=== PATIENT | female | born 1930 | race Hispanic/Latino ===

== ENCOUNTER 2018-12-24 00:34 | Emergency (ER) | payer OTHER ==
[2018-12-24] MEDS ORDERED: TETANUS/DIPHTHERIA TOXOID [ADULT] 0.5 ML VIAL IM ONE (01:11)
[2018-12-24] MEDS ORDERED: OCTYL 2-CYANOACRYLATE 1 EACH TP ONE ×2 (01:11→03:53)
[2018-12-24] MEDS ORDERED: ACETAMINOPHEN 325 MG TAB ONE (01:12)
[2018-12-24 03:09] LABS: BASOPHILS % (AUTO) 0.7 % (0.0-5.0); EOSINOPHILS % (AUTO) 0.9 % (0.0-8.0); HEMATOCRIT 31.4 % (36-48); LYMPHOCYTES % (AUTO) 7.8 % (21.0-51.0); MEAN CORPUSCULAR HEMOGLOBIN 27.6 pg (27.0-33.0); MEAN CORPUSCULAR HGB CONC 32.4 g/dL (32.0-36.0); MEAN CORPUSCULAR VOLUME 85.2 fL (79-99); MONOCYTES % (AUTO) 10.7 % (3.0-13.0); NEUTROPHILS % (AUTO) 79.9 % (40.0-77.0); PLATELET COUNT (AUTO) 425 K/uL (130-400); RED BLOOD CELL COUNT(AUTO) 3.69 MIL/uL (4.00-5.50); RED CELL DISTRIBUTION WIDTH 17.9 % (11.0-15.5); WHITE BLOOD COUNT (AUTO) 11.6 K/uL (4.8-10.8)
[2018-12-24 03:15] LABS: CREATININE 0.8 mg/dL (0.5-1.5); POTASSIUM 3.2 mmol/L (3.5-5.1)
[2018-12-24 03:18] LABS: ALBUMIN 2.9 g/dL (3.5-5.0); BILIRUBIN,TOTAL 0.4 mg/dL (0.2-1.0); TOTAL PROTEIN, SERUM 7.3 g/dL (6.0-8.3)
[2018-12-24 03:44] LABS: APPEARANCE,URINE Cloudy (CLEAR); BILIRUBIN,URINE Negative (NEGATIVE); COLOR,URINE Yellow (YELLOW); GLUCOSE, URINE (UA) Negative (NEGATIVE); KETONES,URINE Negative (NEGATIVE); LEUKOCYTE ESTERASE ,URINE Large (NEGATIVE); NITRATE,URINE Positive (NEGATIVE); OCCULT BLOOD,URINE Trace (NEGATIVE); PROTEIN,URINE Trace mg/dL (NEGATIVE)
[2018-12-24 03:56] LABS: BACTERIA,URINE Many /HPF (None Seen); SQUAMOUS EPITHELIAL CELL,UR 0-2 /HPF (0-2); WBC,URINE 26-50 /HPF (0-1)
[2018-12-24] MEDS ORDERED: CEFTRIAXONE SODIUM 1 GM ONE (03:59)
[2018-12-24] MEDS ORDERED: POTASSIUM BICARB/CIT AC 25 MEQ TABLET.EFF ONE (03:59)
== END 2018-12-24 04:34 | disposition home or self-care (01) ==
LOC: EDH 00:34
DX: S01.01XA Laceration without foreign body of scalp, initial encounter (principal); S61.412A Laceration without foreign body of left hand, initial encounter; S51.812A Laceration without foreign body of left forearm, initial encounter; S51.012A Laceration without foreign body of left elbow, initial encounter; N39.0 Urinary tract infection, site not specified; I10 Essential (primary) hypertension; E07.9 Disorder of thyroid, unspecified; W01.0XXA Fall on same level from slipping, tripping and stumbling without subsequent striking against object, initial encounter; Y93.89 Activity, other specified; Y92.89 Other specified places as the place of occurrence of the external cause; Y99.8 Other external cause status
CPT/HCPCS: 12001; 12032; 12041; 36415; 70450; 71045; 72125; 72170; 80053; 81001; 85025; 87077; 87088; 87186; 90471; 90714; 96374; 99285; J0696

== ENCOUNTER 2019-01-03 17:15 | Inpatient (IN) | payer OTHER ==
[~2019-01-03] VITALS: Ht 157.5 cm; Wt 52.2 kg
[2019-01-03 17:48] LABS: BASOPHILS % (AUTO) 0.7 % (0.0-5.0); EOSINOPHILS % (AUTO) 0.1 % (0.0-8.0); HEMATOCRIT 30.9 % (36-48); LYMPHOCYTES % (AUTO) 3.7 % (21.0-51.0); MEAN CORPUSCULAR HEMOGLOBIN 27.6 pg (27.0-33.0); MEAN CORPUSCULAR HGB CONC 32.8 g/dL (32.0-36.0); MEAN CORPUSCULAR VOLUME 84.2 fL (79-99); MONOCYTES % (AUTO) 11.2 % (3.0-13.0); NEUTROPHILS % (AUTO) 84.3 % (40.0-77.0); PLATELET COUNT (AUTO) 451 K/uL (130-400); RED BLOOD CELL COUNT(AUTO) 3.67 MIL/uL (4.00-5.50); RED CELL DISTRIBUTION WIDTH 16.7 % (11.0-15.5); WHITE BLOOD COUNT (AUTO) 16.4 K/uL (4.8-10.8)
[2019-01-03 17:57] LABS: CREATININE 0.8 mg/dL (0.5-1.5); POTASSIUM 3.5 mmol/L (3.5-5.1)
[2019-01-03 18:01] LABS: ALBUMIN 3.1 g/dL (3.5-5.0); BILIRUBIN,TOTAL 0.4 mg/dL (0.2-1.0); TOTAL PROTEIN, SERUM 7.7 g/dL (6.0-8.3)
[2019-01-03 18:17] LABS: B-TYPE NATRIURETIC PEPTIDE 215 pg/mL (0-100)
[2019-01-03] MEDS ORDERED: AZITHROMYCIN 250 MG TABLET PO ONE (18:59)
[2019-01-03] MEDS ORDERED: METHYLPREDNISOLONE SOD SUCC 40MG/ML 1ML ONE (18:59)
[2019-01-03] MEDS ORDERED: CEFTRIAXONE SODIUM 1 GM ONE (18:59)
[2019-01-03] MEDS ORDERED: IPRATROPIUM/ALBUTEROL SULFATE 3 ML SOLUTION IH ONE ×2 (19:00→19:47)
[2019-01-03] MEDS ORDERED: SODIUM CHLORIDE 0.9% 100 ML IV ONE (19:00)
[2019-01-03] MEDS ORDERED: ZOSYN 3.375GM+NS 50ML 50 ML IV ONE (20:37)
[2019-01-03] MEDS: VANCOMYCIN 0.75 GM in SODIUM CHLORIDE 0.9% 250 ML IV SCH (21:00)
[2019-01-03] MEDS ORDERED: VANCOMYCIN PROTOCOL PER PHARMACY IV SCH (21:00)
[2019-01-03] MEDS ORDERED: COMPOUND IV REFRIGERATED 1 EACH IVSOLN MISC PRN (21:00)
[2019-01-03] MEDS ORDERED: MORPHINE SULFATE 2 MG/ML 1ML SYG IV PRN (21:15)
[2019-01-03] MEDS ORDERED: ONDANSETRON HCL 4 MG/2 ML VIAL IV PRN (21:15)
[2019-01-03] MEDS ORDERED: MAGNESIUM 2GM PREMIX 50ML 50 ML IV PRN (21:15)
[2019-01-03] MEDS ORDERED: MAG HYDROX/AL HYDROX/SIMETH ES 30 ML SUSP UDCUP PO PRN (21:15)
[2019-01-03] MEDS ORDERED: ONDANSETRON HCL 4 MG/2 ML VIAL IVP PRN (21:15)
[2019-01-03] MEDS ORDERED: MORPHINE SULFATE 2 MG/ML 1ML SYG IVP PRN (21:15)
[2019-01-03] MEDS ORDERED: ACETAMINOPHEN 325 MG TAB PO PRN ×2 (21:15)
[2019-01-03] MEDS ORDERED: HYDRALAZINE HCL 20 MG/ML VIAL IV PRN (21:15)
[2019-01-03] MEDS ORDERED: LACTULOSE 20 GM/30 ML UDCUP PO PRN (21:15)
[2019-01-03] MEDS ORDERED: GUAIFENESIN-DM 200/20 MG 10 ML PO PRN (21:15)
[2019-01-03] MEDS ORDERED: POTASSIUM CHLORIDE 20MEQ/100ML 100 ML IV PRN (21:15)
[2019-01-03] MEDS ORDERED: ZOLPIDEM TARTRATE 5 MG TAB PO PRN (21:15)
[2019-01-03] MEDS ORDERED: DIPHENHYDRAMINE HCL 25 MG CAPSULE PO PRN (21:15)
[2019-01-03] MEDS ORDERED: ACETAMINOPHEN 325 MG TAB ONE (21:53)
[2019-01-03] MEDS: IPRATROPIUM/ALBUTEROL SULFATE 3 ML SOLUTION IH SCH (22:38)
[2019-01-04] MEDS ORDERED: IPRATROPIUM/ALBUTEROL SULFATE 3 ML SOLUTION IH SCH
[2019-01-04] MEDS ORDERED: SODIUM CHLORIDE 3% FOR INHALATION 4 ML/AMP VIAL.NEB IH ONE ×4 (01:31→21:25)
[2019-01-04] MEDS: IPRATROPIUM/ALBUTEROL SULFATE 3 ML SOLUTION IH SCH ×6 (01:46→21:34)
[2019-01-04] MEDS: ZOSYN 3.375GM+NS 50ML 50 ML IV SCH ×3 (02:00→20:13)
[2019-01-04] MEDS ORDERED: ZOSYN 3.375GM+NS 50ML 50 ML IV ONE (04:19)
[2019-01-04 04:51] LABS: BASOPHILS % (AUTO) 0.2 % (0.0-5.0); HEMATOCRIT 30.9 % (36-48); LYMPHOCYTES % (AUTO) 1.5 % (21.0-51.0); MEAN CORPUSCULAR HEMOGLOBIN 27.1 pg (27.0-33.0); MEAN CORPUSCULAR HGB CONC 31.9 g/dL (32.0-36.0); MEAN CORPUSCULAR VOLUME 84.9 fL (79-99); MONOCYTES % (AUTO) 4.4 % (3.0-13.0); NEUTROPHILS % (AUTO) 93.9 % (40.0-77.0); PLATELET COUNT (AUTO) 419 K/uL (130-400); RED BLOOD CELL COUNT(AUTO) 3.63 MIL/uL (4.00-5.50); RED CELL DISTRIBUTION WIDTH 16.8 % (11.0-15.5); WHITE BLOOD COUNT (AUTO) 19.7 K/uL (4.8-10.8)
[2019-01-04 05:03] LABS: CARBON DIOXIDE 31 mmol/L (21-32); CHLORIDE 101 mmol/L (101-111); GLOMERULAR FILTR. RATE CALC 56 mL/min (>60); GLUCOSE,RANDOM 188 mg/dL (70-105); POTASSIUM 3.1 mmol/L (3.5-5.1); SODIUM SERUM 138 mmol/L (136-145); UREA NITROGEN, BLOOD 13 mg/dL (7-18)
[2019-01-04 05:04] LABS: INR 1.04 (0.85-1.15); PARTIAL THROMBOPLASTIN TIME 28.8 SEC (26.3-35.5); PROTHROMBIN TIME 10.9 SEC (9.6-11.6)
[2019-01-04 05:22] LABS: AMMONIA < 10 umol/L (11-32)
[2019-01-04] MEDS ORDERED: POTASSIUM CHLORIDE 20MEQ/100ML 100 ML IV ONE (06:11)
[2019-01-04] MEDS ORDERED: MAGNESIUM 2GM PREMIX 50ML 50 ML IV ONE (06:11)
[2019-01-04 07:22] LABS: ABG BASE EXCESS 2.6 mmol/L (-2.0-3.0); ABG OXYGEN SATURATION 97.9 % (95.0-99.0); ABG PCO2 52 mmHg (32-45)
[2019-01-04] MEDS: INSULIN HUMULIN R 100 UNIT/ML 3ML SQ SCH ×4 (07:30→21:00)
[2019-01-04] MEDS: ENOXAPARIN SODIUM 30 MG/0.3 ML SQ SCH (09:00)
[2019-01-04] MEDS ORDERED: IPRATROPIUM/ALBUTEROL SULFATE 3 ML SOLUTION IH ONE (09:16)
[2019-01-04] MEDS ORDERED: ENOXAPARIN SODIUM 30 MG/0.3 ML SQ ONE (10:28)
--- NOTE | 2019-01-04 11:35 | NUR ---
DCP: HOME met with pt and her daughter Emily Grossman [phone]. Pt's 2 daughter Charisse and Mayra Meyer, and 2 grand daughters and 1 grandson live with the patient. Daughters assist pt as needed with ADLS and pt has walker, w/c and shower chair. Pt's daughter Deirdre does transport to [place] appts. No services. Family denies dc needs. Pt to return home with family support Addendum: 01/04/19 at 1210 by TOÑO BURK Amended: Links added.
[2019-01-04 12:00] VITALS: BP 133/68
--- NOTE | 2019-01-04 12:00 | NUR ---
DYSPHAGIA EVAL COMPLETED. -S/S OF ASPIRATION. RECOMMEND MECHANICAL SOFT/CHOPPED, THIN LIQUIDS; PILLS WHOLE WITH LIQUIDS. Addendum: 01/05/19 at 0832 by TRUPTI NAGEL, [facility] Amended: Links added.
[2019-01-04] MEDS ORDERED: IPRATROPIUM/ALBUTEROL SULFATE 3 ML SOLUTION IH PRN (13:00)
[2019-01-04 16:00] VITALS: BP 132/58
[2019-01-04] MEDS ORDERED: AMLO5TAB9 PO (16:13)
[2019-01-04] MEDS ORDERED: ASPI-555 PO (16:14)
[2019-01-04] MEDS ORDERED: LEVO25TA54 PO (16:17)
[2019-01-04] MEDS ORDERED: SERT25TA5 PO (16:17)
[2019-01-04] MEDS ORDERED: METO50 PO (16:19)
[2019-01-04] MEDS ORDERED: LISI-613 PO (16:20)
[2019-01-04] MEDS ORDERED: [UNRECOGNIZED DRUG - CODE] PO (16:25)
[2019-01-04] MEDS ORDERED: IRON PO (16:29)
[2019-01-04] MEDS ORDERED: VIT D PO (16:30)
[2019-01-04] MEDS ORDERED: AMPI500C12 PO (16:33)
[2019-01-04] MEDS: VANCOMYCIN 500MG+NS 100ML 100 ML IV SCH (18:41)
[2019-01-04 19:00] VITALS: BP 148/59
--- NOTE | 2019-01-04 20:07 | NUR ---
PAGED DEVELOPMENTAL WRITING INSTRUCTOR Paged Jira Administrator front line supervisor,pt.s heart rate st 130's.
--- NOTE | 2019-01-04 20:13 | NUR ---
MEDS Due meds given.
[2019-01-04] MEDS ORDERED: AMPICILLIN TRIHYDRATE 500 MG PO SCH (21:00)
[2019-01-04] MEDS: VANCOMYCIN 0.75 GM in SODIUM CHLORIDE 0.9% 250 ML IV SCH (21:00)
[2019-01-04] MEDS: MORPHINE SULFATE 15 MG TABLET.SA PO SCH (21:26)
--- NOTE | 2019-01-04 22:55 | NUR ---
RADIOLOGY Ct scan dept called,pt has a pending ct scan of abdomen,chest pelvis with contrast.Pt already asleep,pts daughter informed of the test and need to keep Npo.Verbalized understanding.
[2019-01-04 23:00] VITALS: BP 145/75
--- NOTE | 2019-01-05 00:30 | NUR ---
TACHYCARDIC Pt cont to be tachycardic,placed on bipap per RT.
[2019-01-05] MEDS: IPRATROPIUM/ALBUTEROL SULFATE 3 ML SOLUTION IH SCH ×6 (01:16→21:29)
[2019-01-05 03:00] VITALS: BP 111/77
[2019-01-05] MEDS: ZOSYN 3.375GM+NS 50ML 50 ML IV SCH ×3 (03:20→18:27)
--- NOTE | 2019-01-05 03:46 | NUR ---
BIPAP Pt tolerating bipap well.Heart rate more controlled now.Breathing less labored.
[2019-01-05] MEDS: INSULIN HUMULIN R 100 UNIT/ML 3ML SQ SCH ×4 (05:24→21:00)
[2019-01-05] MEDS ORDERED: LEVOTHYROXINE 25 MCG TABLET ONE (06:23)
[2019-01-05 06:45] LABS: BASOPHILS % (AUTO) 0.2 % (0.0-5.0); HEMATOCRIT 27.8 % (36-48); LYMPHOCYTES % (AUTO) 3.3 % (21.0-51.0); MEAN CORPUSCULAR VOLUME 84.4 fL (79-99); MONOCYTES % (AUTO) 10.5 % (3.0-13.0); NUCLEATED RED BLOOD CELLS 0.1 % (0.0-0.19); PLATELET COUNT (AUTO) 434 K/uL (130-400); RED CELL DISTRIBUTION WIDTH 17.1 % (11.0-15.5); WHITE BLOOD COUNT (AUTO) 21.8 K/uL (4.8-10.8)
[2019-01-05] MEDS ORDERED: LEVOTHYROXINE 25 MCG TABLET PO SCH (07:30)
[2019-01-05 08:00] VITALS: BP 92/51
[2019-01-05] MEDS: METOPROLOL TARTRATE 50 MG TAB PO SCH ×2 (08:00→18:31)
[2019-01-05] MEDS: LISINOPRIL 20 MG TABLET PO SCH (09:00)
[2019-01-05] MEDS: AMLODIPINE BESYLATE 5 MG TAB PO SCH (09:00)
[2019-01-05] MEDS ORDERED: IOHEXOL 350 MG/ML 100ML INFUS..BTL IV ONE (10:19)
--- NOTE | 2019-01-05 10:21 | NUR ---
1001 had daughter sign IM Letter.Faxed to [phone] and placed in chart under consent tab.
--- NOTE | 2019-01-05 10:27 | NUR ---
down for ct scan
--- NOTE | 2019-01-05 10:59 | NUR ---
[facility] Sw me with pt's daughters Emily and Deirdre who state they are wanting to take pt home with [facility]. Emily signed consent for referral. SW notified Debbie of referral and faxed pt info to office. Waiting for acceptance
[2019-01-05] MEDS: MORPHINE SULFATE 15 MG TABLET.SA PO SCH ×2 (11:19→21:00)
[2019-01-05] MEDS: SERTRALINE HCL 50 MG TABLET PO SCH (11:20)
[2019-01-05] MEDS: METHYLPREDNISOLONE SOD SUCC 40MG/ML 1ML IVP SCH ×2 (11:20→20:56)
[2019-01-05] MEDS: ASPIRIN 81 MG EC TAB PO SCH (11:20)
[2019-01-05] MEDS: ENOXAPARIN SODIUM 30 MG/0.3 ML SQ SCH (11:26)
[2019-01-05 12:00] VITALS: BP 130/68
[2019-01-05] MEDS: VANCOMYCIN 0.75 GM in SODIUM CHLORIDE 0.9% 250 ML IV SCH (13:08)
[2019-01-05] MEDS: VANCOMYCIN 500MG+NS 100ML 100 ML IV SCH (13:22)
--- NOTE | 2019-01-05 15:25 | NUR ---
HOSPICE F/u Sw recd call from [place] needing more medical records on pt. Sw provided results of scan done this am and xrays. Waiting for response.
[2019-01-05 16:00] VITALS: BP 116/60
--- NOTE | 2019-01-05 17:07 | NUR ---
DCP: PEnding [place] acceptance Sw recd call from [place]. Family looking for Medicare # of pt. Acceptance pending this. Once recd and approved, DME will be delivered. Possible dc tomorrow
[2019-01-05 19:00] VITALS: BP 110/57
[2019-01-05 23:00] VITALS: BP 118/65
[2019-01-06] MEDS: IPRATROPIUM/ALBUTEROL SULFATE 3 ML SOLUTION IH SCH ×4 (01:22→13:48)
[2019-01-06] MEDS: ZOSYN 3.375GM+NS 50ML 50 ML IV SCH ×2 (02:22→10:22)
--- NOTE | 2019-01-06 02:26 | NUR ---
FAMILY Pts daughter concerned pt is confused,restless.Pt states she only hurts when she moves.Daughter does not want me to give her Morphine and ambien,states,"It makes her loopy".
[2019-01-06 03:00] VITALS: BP 122/66
[2019-01-06] MEDS: VANCOMYCIN 500MG+NS 100ML 100 ML IV SCH (04:12)
[2019-01-06] MEDS: MORPHINE SULFATE 15 MG TABLET.SA PO SCH (04:19)
[2019-01-06] MEDS: INSULIN HUMULIN R 100 UNIT/ML 3ML SQ SCH ×2 (05:54→11:30)
[2019-01-06] MEDS ORDERED: LEVOTHYROXINE 25 MCG TABLET PO SCH (06:30)
[2019-01-06] MEDS ORDERED: VANCOMYCIN 1GM+NS 250ML 250 ML IV ONE (06:30)
[2019-01-06 08:41] VITALS: BP 133/70
[2019-01-06] MEDS: LISINOPRIL 20 MG TABLET PO SCH (10:14)
[2019-01-06] MEDS: METOPROLOL TARTRATE 50 MG TAB PO SCH (10:14)
[2019-01-06] MEDS: AMLODIPINE BESYLATE 5 MG TAB PO SCH (10:14)
[2019-01-06] MEDS: ASPIRIN 81 MG EC TAB PO SCH (10:14)
[2019-01-06] MEDS: ENOXAPARIN SODIUM 30 MG/0.3 ML SQ SCH (10:15)
[2019-01-06] MEDS: SERTRALINE HCL 50 MG TABLET PO SCH (10:15)
[2019-01-06] MEDS: METHYLPREDNISOLONE SOD SUCC 40MG/ML 1ML IVP SCH (10:16)
[2019-01-06] MEDS ORDERED: METHYLPREDNISOLONE SOD SUCC 40MG/ML 1ML IVP SCH (10:45)
[2019-01-06 11:00] VITALS: BP 135/73
--- NOTE | 2019-01-06 15:00 | NUR ---
EMS SET UP AND FAXED
[2019-01-06] MEDS ORDERED: VANCOMYCIN 500MG+NS 100ML 100 ML IV SCH (18:00)
== END 2019-01-06 15:00 | disposition hospice, home (50) | DRG 189 ==
LOC: EDH 17:15 → OBSVTOIN 20:02 → EDHIP 20:02 → 3DH 01-04 11:39
PROVIDERS: ADMIT Internal Medicine; ATTEND Internal Medicine
PROC: 5A09357 Assistance with Respiratory Ventilation, Less than 24 Consecutive Hours, Continuous Positive Airway Pressure (ICD-10-PCS; principal; 2019-01-03)
DX: J96.01 Acute respiratory failure with hypoxia (principal); C34.11 Malignant neoplasm of upper lobe, right bronchus or lung; C79.51 Secondary malignant neoplasm of bone; R64 Cachexia; F03.90 Unspecified dementia, unspecified severity, without behavioral disturbance, psychotic disturbance, mood disturbance, and anxiety; Z51.5 Encounter for palliative care; Z66 Do not resuscitate; Z68.21 Body mass index [BMI] 21.0-21.9, adult; Z86.73 Personal history of transient ischemic attack (TIA), and cerebral infarction without residual deficits
CPT/HCPCS: 36415; 36600; 71045; 71260; 74177; 80048; 80053; 80202; 82140; 82803; 82948; 83605; 83735; 83880; 84132; 84145; 84484; 85025; 85610; 85730; 87040; 92610; 93005; 94640; 94660; 94664; G0378; J0696; J1650; J1815; J2543; J2920; J3370; J3475; J3480; J7030; Q9967